=== PATIENT | male | born 1960 | race Caucasian/White ===

== ENCOUNTER 2017-10-15 12:14 | Emergency (ER) | payer BC, SELFPAY ==
[2017-10-15 12:55] VITALS: BP 129/90; PULSE 60; RESP 20; TEMP 37; O2SAT 97; BMI 30.1
--- NOTE | 2017-10-15 13:59 | HMH.EDUTC ---
[facility] [place]: Influenza-like illness Disposition: Home, Self-Care Condition on Discharge: Good Instructions: DI for Influenza -- Adult Additional Instructions: * No sign of a bacterial infection. Sounds like and looks like you have the flu or a similar virus. * Too late to start tamiflu. Most effective when started within 48 hours of symptoms onset. * Lots of rest * Increase fluids, water, gatorade, powerade, pedialyte if infant/toddler/child * Monitor Temp. Follow up if fever develops * OTC cold/flu/sinus medication is ok but pick one. Do not take multiple different ones as they have similar ingredients and you can overdose on cold medication. * You (or your child) are contagious until no fever, aches, chills x 24 hours without medication for symptoms. * * Per hospital policy, Your throat swab was sent for culture. Those results are typically sent to your primary care. Be sure to follow up in 2-3 days if no improvement so they can review those results and treat if necessary. If you don't have primary care, I recommend you get one but in the mean time, you will have to return to a walk in clinic. Follow up with primary care IMMEDIATELY for new or worsening symptoms, improvement followed by suddenly feeling worse OR no noticeable improvement over the next 48-72 hours. 911 for difficulty breathing Forms: Work/School Release Time of Disposition: 14:50 Medical Decision Making Vital Signs: 10/15/17 12:55 Temperature 98.6 F Temperature Source Temporal Artery Scan Pulse Rate [Left Brachial] 60 Respiratory Rate 20 Blood Pressure [Left Arm] 129/90 Blood Pressure Mean [Left Arm] 103 Blood Pressure Source [Left Arm] Automatic Cuff Blood Pressure Position [Left Arm] Sitting 02 Sat by Pulse Oximetry 97 Oxygen Delivery Method Room Air - Lab Data Lab results reviewed: Yes: I reviewed the patient's lab results. Lab Results 10/15/17 12:44: Strep Scn Rapid Clinic Negative Flu A neg Flu B neg Orders (Tests/Meds): ORDERS Category Date Time Status Strep Screen Confirmation Stat Micro 10/15/17 12:44 Received - Mart Inquiry Pt receiving controlled substance: No [facility] [place] - General Stated complaint: sore throat ear pain Time Seen by Provider: 10/15/17 13:59 Mode of Arrival: Ambulatory Source of Information: Patient Limitations: No Limitations Description of Symptoms (Recalled from Triage Doc. by RN): C/O SORE THROAT AND BILATERAL EAR PAIN HEENT Symptoms (Recalled from RN notes): Yes (SORE THROAT, BILATERAL EAR PAIN) Resp Symptoms (Recalled from RN notes): No Skin Symptoms (Recalled from RN notes): No MS Symptoms (Recalled from RN notes): No Functional Status (Recalled from RN notes): N/A - History of Present Illness Provider Complaint: c/o I think I have the flu . Initially started on Friday, 4 days ago, with subjective fever, bodyaches, chills, sore throat that progressed into cough, rhinorrhea, nasal congestion. Today no longer feeling feverish, aches improved, sore throat some what better but still fatigued. Cough never worsened just minimal really . Theraflu and nyquil have helped until needs to be repeated. - Related Data Allergies Allergy/AdvReac Type Severity Reaction Status Date / Time NO KNOWN ALLERGIES Allergy Uncoded 08/26/17 15:26 - Worker's Comp Is this a Worker's Comp case?: No H History I have reviewed the patient's past medical history: Yes Medical History: Reports:: Hyperlipidemia, Hypertension Denies:: Cancer, Diabetes Mellitus Type 1, Diabetes Mellitus Type 2, MRSA Other Medical History: Reports: Other (joint pain) Other Surgeries: Yes: No Previous Surgery Amputation: No Fractures: No - *Social History Smoking Status: Current every day smoker Tobacco Type: smokeless tobacco Alcohol Intake: never - Psychiatric History Expresses thoughts of harming self/others: None Suicide Plan Description: No Plan ROS Obtained: Yes Systems reviewed
[2017-10-15 14:00] LABS: UTC Strep Screen (Rapid) Negative (Negative)
--- NOTE | 2017-10-15 14:06 | ED_ITS ---
[facility] [place] Clinical Impression: Influenza-like illness Disposition: Home, Self-Care Condition on Discharge: Good Instructions: DI for Influenza -- Adult Additional Instructions: * No sign of a bacterial infection. Sounds like and looks like you have the flu or a similar virus. * Too late to start tamiflu. Most effective when started within 48 hours of symptoms onset. * Lots of rest * Increase fluids, water, gatorade, powerade, pedialyte if infant/toddler/child * Monitor Temp. Follow up if fever develops * OTC cold/flu/sinus medication is ok but pick one. Do not take multiple different ones as they have similar ingredients and you can overdose on cold medication. * You (or your child) are contagious until no fever, aches, chills x 24 hours without medication for symptoms. * * Per hospital policy, Your throat swab was sent for culture. Those results are typically sent to your primary care. Be sure to follow up in 2-3 days if no improvement so they can review those results and treat if necessary. If you don' t have primary care, I recommend you get one but in the mean time, you will have to return to a walk in clinic. Follow up with primary care IMMEDIATELY for new or worsening symptoms, improvement followed by suddenly feeling worse OR no noticeable improvement over the next 48-72 hours. 911 for difficulty breathing Forms: Work/School Release Time of Disposition: 14:50 Medical Decision Making Vital Signs: 10/15/17 12:55 Temperature 98.6 F Temperature Source Temporal Artery Scan Pulse Rate [Left Brachial] 60 Respiratory Rate 20 Blood Pressure [Left Arm] 129/90 Blood Pressure Mean [Left Arm] 103 Blood Pressure Source [Left Arm] Automatic Cuff Blood Pressure Position [Left Arm] Sitting 02 Sat by Pulse Oximetry 97 Oxygen Delivery Method Room Air - Lab Data Lab results reviewed: Yes: I reviewed the patient's lab results. Lab Results 10/15/17 12:44: Strep Scn Rapid Clinic Negative Flu A neg Flu B neg Orders (Tests/Meds): ORDERS Category Date Time Status Strep Screen Confirmation Stat Micro 10/15/17 12:44 Received - Mart Inquiry Pt receiving controlled substance: No [facility] [place] HPI - General Stated complaint: sore throat ear pain Time Seen by Provider: 10/15/17 13:59 Mode of Arrival: Ambulatory Source of Information: Patient Limitations: No Limitations Description of Symptoms (Recalled from Triage Doc. by RN): C/O SORE THROAT AND BILATERAL EAR PAIN HEENT Symptoms (Recalled from RN notes): Yes (SORE THROAT, BILATERAL EAR PAIN) Resp Symptoms (Recalled from RN notes): No Skin Symptoms (Recalled from RN notes): No MS Symptoms (Recalled from RN notes): No Functional Status (Recalled from RN notes): N/A - History of Present Illness Provider Complaint: c/o I think I have the flu . Initially started on Friday , 4 days ago, with subjective fever, bodyaches, chills, sore throat that progressed into cough, rhinorrhea, nasal congestion. Today no longer feeling feverish, aches improved, sore throat some what better but still fatigued. Cough never worsened just minimal really . Theraflu and nyquil have helped until needs to be repeated. - Related Data Allergies Allergy/AdvReac Type Severity Reaction Status Date / Time NO KNOWN ALLERGIES Allergy Uncoded 08/26/17 15:26 - Worker's Comp Is this a Worker's Comp case?: No [facility] History I have re
[2017-10-15 14:51] VITALS: BP 138/80; PULSE 89; RESP 20; TEMP 36.6; O2SAT 97
[2017-10-15 14:52] LABS: UTC Influenza A Antigen Negative (Negative); UTC Influenza B Antigen Negative (Negative)
== END 2017-10-15 14:52 | disposition home or self-care (01) ==
PROVIDERS: Emergency Provider Nurse Practitioner Family; Family Provider Pediatrics; PCP Orthopaedic Surgery
DX: J11.1 Influenza due to unidentified influenza virus with other respiratory manifestations (principal); E78.5 Hyperlipidemia, unspecified; I10 Essential (primary) hypertension; F17.290 Nicotine dependence, other tobacco product, uncomplicated
CPT/HCPCS: 87804; 87880; 99201

== ENCOUNTER 2020-06-08 12:45 | Emergency (ER) | payer BC, SELFPAY ==
[2020-06-08 13:16] VITALS: BP 141/92; PULSE 69; RESP 20; TEMP 36.7; O2SAT 97; BMI 31.0
--- NOTE | 2020-06-08 13:29 | HMH.EDUTC ---
[facility] [place] Clinical Impression: Exposure to COVID-19 virus Disposition: Home, Self-Care Condition on Discharge: Good Instructions: Preventing the Spread of Coronavirus Discharge Instructions Additional Instructions: Drink plenty of fluids. Take tylenol or ibuprofen for pain or fever. Follow up with your regular doctor. GO TO THE ER FOR ANY WORSENING SYMPTOMS FOLLOW THE DIRECTIONS ON THE COVID-19 HAND OUT THAT WE GAVE YOU REGARDING SELF-ISOLATION UNTIL YOU KNOW YOUR COVID-19 RESULTS Referrals: Wale Cooper [Primary Care Provider] - Time of Disposition: 13:37 Medical Decision Making - Medical Records Medical records reviewed: No: I reviewed the patient's medical records. - Mart Inquiry Pt receiving controlled substance: No Vital Signs: 06/08/20 13:16 06/08/20 13:43 Temperature 98.0 F 98.0 F Temperature Source Oral Pulse Rate 69 Pulse Rate [Right Brachial] 69 Respiratory Rate 20 20 Blood Pressure 141/92 H Blood Pressure [Right Arm] 141/92 H Blood Pressure Mean [Right Arm] 108 Blood Pressure Source [Right Arm] Automatic Cuff Blood Pressure Position [Right Arm] Sitting 02 Sat by Pulse Oximetry 97 Oxygen Delivery Method Room Air - Lab Data Lab Results 06/08/20 13:27: Influenza Type A Ag Negative, Influenza Type B Ag Negative 06/08/20 13:27: Strep Scn Rapid Clinic Negative Orders (Tests/Meds): ORDERS Category Date Time Status Strep Screen Confirmation Stat Micro 06/08/20 13:27 Received [facility] [place] - General Stated complaint: covid exposure/ symptoms Time Seen by Provider: 06/08/20 13:25 Mode of Arrival: Ambulatory Source of Information: Patient Limitations: No Limitations Description of Symptoms (Recalled from Triage Doc. by RN): PATIENT C/O FEVER FRIDAY NIGHT, DECREASED ENERGY AND HEADACHE. HIS GRANDSON'S TEACHER RECENTLY WAS POSITIVE FOR COVID HEENT Symptoms (Recalled from RN notes): Yes Resp Symptoms (Recalled from RN notes): No Skin Symptoms (Recalled from RN notes): No MS Symptoms (Recalled from RN notes): No Functional Status (Recalled from RN notes): WNL - History of Present Illness Provider Complaint: He states that he has been exposed to covid-19 thru his work and his family. - Related Data Home Medications Medication Instructions Recorded Confirmed Lisinopril/Hydrochlorothiazide 0.5 tab PO DAILY 06/08/20 06/08/20 [Zestoretic 12.5mg tablet] Meloxicam [Mobic 15 mg tab] 15 mg PO DAILY 06/08/20 06/08/20 Simvastatin [Zocor 80mg] 80 mg PO HS 06/08/20 06/08/20 Allergies Allergy/AdvReac Type Severity Reaction Status Date / Time No Known Allergies Allergy Verified 06/08/20 13:28 - Worker's Comp Is this a Worker's Comp case?: No [facility] History - Hepatitis A Screen Drug use history?: No High risk sexual behaviors?: No History of sexually transmitted infection?: No Currently employed?: No Childcare worker?: No Do you have indoor plumbing?: Yes Do you have electricity?: Yes Attestation statement:: This patient has been screened for Hepatitis A risk factors. I have reviewed the patient's past medical history: Yes Medical History: Reports:: Hyperlipidemia, Hypertension Denies:: Cancer, Diabetes Mellitus Type 1, Diabetes Mellitus Type 2, MRSA Other Medical History: Reports: Other (joint pain) Other Surgeries: Yes: No Previous Surgery Amputation: No Fractures: No - Social History Smoking Status: Current every day smoker Tobacco Type: smokeless tobacco Alcohol Intake: never Occupational Status: other ROS Obtained: Yes All systems reviewed & no additional complaints - Constitutional Constitutional: Reports chills, Reports fever(s), Reports poor appetite, Reports malaise - Eyes Eyes: Denies eye discharge - ENT Ears, Nose, Mouth, and Throat: Denies dizziness, Denies otalgia, Denies sore throat Physical Exam - General General appearance: alert, in no apparent distress - Head Head exam: atraumat
[2020-06-08 13:43] VITALS: BP 141/92; PULSE 69; RESP 20; TEMP 36.7; O2SAT 97
[2020-06-08 14:29] LABS: UTC Strep Screen (Rapid) Negative (Negative)
[2020-06-08 14:30] LABS: UTC Influenza A Antigen Negative (Negative); UTC Influenza B Antigen Negative (Negative)
== END 2020-06-08 13:45 | disposition home or self-care (01) ==
PROVIDERS: Emergency Provider Nurse Practitioner Family; PCP Pediatrics
DX: Z20.828 Contact with and (suspected) exposure to other viral communicable diseases (principal); I10 Essential (primary) hypertension; E78.5 Hyperlipidemia, unspecified; Z79.899 Other long term (current) drug therapy
CPT/HCPCS: 87804; 87880; 99202; U0003

== ENCOUNTER 2022-09-15 13:55 | Emergency (ER) | payer BC, SELFPAY ==
[2022-09-15 13:56] VITALS: BP 132/95; PULSE 73; RESP 18; TEMP 36.6; O2SAT 97; BMI 29.7
--- NOTE | 2022-09-15 14:10 | XR_ITS ---
PROCEDURE INFORMATION: Exam: XR Left Hand Exam date and time: 09/15/2022 2:11 PM Age: 61 years old Clinical indication: Injury or trauma; Crushing; Hand; Patient HX: Left 4th and 5th fingers crushed by a log splitter. ; Additional info: Crush injury TECHNIQUE: Imaging protocol: Radiologic exam of the Left hand. Views: 3 or more views. COMPARISON: No relevant prior studies available. FINDINGS: Bones/joints: Tiny curvilinear density seen on the radial aspect of the 4th DIP joint. No dislocation. Soft tissues: No radiopaque foreign body. No subcutaneous emphysema. IMPRESSION: Tiny curvilinear density seen on the radial aspect of the 4th DIP joint. This may represent a small avulsed fracture versus ligamentous calcification.
--- NOTE | 2022-09-15 16:48 | PC.NURSE ---
called [place] about pts hand
--- NOTE | 2022-09-15 17:00 | PC.NURSE ---
[employer] rounded on patient
[2022-09-15 17:38] VITALS: BP 131/89; PULSE 73; RESP 18; TEMP 36.6; O2SAT 97
--- NOTE | 2022-09-15 23:18 | HMH.EDGENADL ---
Discharge Plan Disposition Patient Disposition: Home, Self-Care Prescriptions Prescriptions: New cephalexin 250 mg capsule 250 mg PO BID 7 Days Qty: 14 0RF oxycodone 5 mg capsule 5 mg PO Q6H PRN (Reason: pain) Qty: 10 0RF cephalexin 250 mg capsule 250 mg PO BID 7 Days Qty: 14 0RF No Action meloxicam 15 MG tablet 15 mg PO DAILY simvastatin 80 MG tablet 80 mg PO HS lisinopril-hydrochlorothiazide 1 EACH tablet 0.5 tab PO DAILY Referrals Follow up/Referrals: Wale Cooper [Primary Care Provider] - See instructions Clinical Impressions Clinical Impression: Laceration Stand Alone Forms Stand Alone Forms: Work/School Release Instructions Patient Instructions: DI for Laceration Repair Discharge ED Provider: Lonnie Kellogg General Adult HPI General Chief complaint: Wound/Laceration Stated complaint: AO 09/15@home@1300 lac on Lt pinky, ring finger Time Seen by Provider: 09/15/22 17:24 Mode of Arrival: Ambulatory Source of Information: Patient Limitations: No Limitations Description of Symptoms (Recalled from ER Triage Doc. by RN): PT STATES HE SMASHED HIS FINGER WHLE SPLITTING WOOD ON HIS WOOD SPLITTER, BLEEDING CONTROLLED, RING AND PINKY FINGER NOTED WITH INJURY, DENIES BEING ON BLOOD THINNERS History of Present Illness HPI narrative: Patient presents for evaluation of laceration to left hand. He was working with a log splitter when his hand got caught between a log and the splitter itself. Patient had immediate pain in his fourth and fifth digit. He remains able to move his digits and sensation is intact. Related Data Home Medications Medication Instructions Recorded Confirmed lisinopril 10 0.5 tab PO DAILY Hypertension 06/08/20 06/08/20 mg-hydrochlorothiazide 12.5 mg tablet meloxicam 15 mg tablet 15 mg PO DAILY Arthritis 06/08/20 06/08/20 simvastatin 80 mg tablet 80 mg PO HS Cholesterol 06/08/20 06/08/20 Previous Rx's Medication Instructions Recorded cephalexin 250 mg capsule 250 mg PO BID 7 days #14 caps 09/15/22 cephalexin 250 mg capsule 250 mg PO BID 7 days #14 caps 09/15/22 oxycodone 5 mg capsule 5 mg PO Q6H PRN pain #10 caps 09/15/22 Allergies Allergy/AdvReac Type Severity Reaction Status Date / Time No Known Allergies Allergy Verified 06/08/20 13:28 [facility] Disclaimer: The information contained in this section may have been updated after the patient was seen, as this information can be updated by other users. Social History Smoking Status: Never smoker alcohol intake: never current occupational status: other Travel in the last 8 weeks: None ROS Obtained: Yes Systems reviewed as appropriate & no additional complaints except as documented Physical Exam General General appearance: alert and in no apparent distress Head Head exam: atraumatic and normocephalic Eye Eye exam: Present normal appearance Respiratory Respiratory exam: Present normal lung sounds bilaterally Cardiovascular Cardiovascular exam: Present regular rate and normal rhythm Neurological Exam Neurological exam: Present alert and oriented X3 Expanded Skin Exam Type of lesion: Present laceration Comment: Patient with multiple lacerations to left upper extremity. 1 cm laceration to finger pad of fourth digit, 1 cm laceration to finger pad of fifth digit, 4 cm laceration to side of fifth digit extending up to the nail with subungual hematoma. Small subungual hematoma, nail stable, will keep nail intact Medical Decision Making Mart Inquiry Pt receiving controlled substance: Yes Mart was queried for this patient: Yes Risks and benefits of using a controlled substance: were discussed with pt by me Vital Signs: 09/15/22 13:56 09/15/22 17:38 Temperature 97.9 F 97.9 F Temperature Source Oral Oral Pulse Rate 73 Pulse Rate [Right Radial] 73 Respiratory Rate 18 18 Blood Pressure 131/89 Blood Pressure [Right Arm] 132/95 H Blood Pressure
== END 2022-09-15 17:40 | disposition home or self-care (01) ==
PROVIDERS: Emergency Provider Emergency Medicine; PCP Pediatrics
DX: S61.215A Laceration without foreign body of left ring finger without damage to nail, initial encounter (principal); W22.8XXA Striking against or struck by other objects, initial encounter; Z23 Encounter for immunization; S61.412A Laceration without foreign body of left hand, initial encounter; S61.227A Laceration with foreign body of left little finger without damage to nail, initial encounter
CPT/HCPCS: 12002; 73130; 90471; 90715; 96372; 99284